=== PATIENT | female | born 1970 | race American Indian/Alaskan Native ===

== ENCOUNTER 2017-12-31 06:55 | Day surgery (SDC) | payer OTHER ==
[~2017-12-31 06:55] MED LIST: Midazolam 1 MG/ML 2 ML SDV ONE; fentaNYL 100 MCG/2 ML SDV ONE
[2017-12-31] MEDS ORDERED: Midazolam 1 MG/ML 2 ML SDV IV ONE ×4 (06:56→07:39)
[2017-12-31] MEDS ORDERED: Midazolam 1 MG/ML 2 ML SDV ONE (07:37)
[2017-12-31] MEDS ORDERED: Sodium Chloride 0.9% 10 ML Syringe FLUSH PRN (08:00)
[2017-12-31] MEDS ORDERED: Dextrose 5%-0.45% NaCl 1,000 ML IV SCH (08:00)
--- NOTE | 2017-12-31 08:47 | OR ---
DATE: 12/31/2017 PROCEDURES: Esophagogastroduodenoscopy and multiple pinch biopsies. INSTRUMENT USED: GIF-H180 Olympus video panendoscope. PREMEDICATIONS: Versed 3 mg intravenous. 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 INDICATION: The patient with longstanding heartburn, dyspepsia, and upper abdominal pain, also found to be iron-deficient. DESCRIPTION OF PROCEDURE: Esophagogastroduodenoscopy is performed for detection of any active erosive lesions. Garcias esophagus and/or malignancy also under consideration. H. pylori status to be determined. Small bowel biopsies to be obtained for celiac disease if indicated, endoscopic hemostasis therapy if needed. The scope was passed with ease. Adequate visualization of the esophagus was made from proximal to distal areas. No upper esophageal lesions identified. No distal esophageal stricture. No uphill or downhill esophageal varices. No Antionette-Quintero tear. Grade A erosive changes were noted by [place] criteria. No esophageal polyp or tumor mass identified. Z-line was seen at around 40 cm distal to the oral verge. No proximal gastric varices noted. Gastric fundus examination by retroflexion showed no polypoid lesions. No gastric ulcer, malignant mass, or vascular ectasia identified. Duodenal bulb showed no ulcer. Visualized second part of the duodenum was unremarkable. Multiple pinch biopsies, four in number, were taken from different areas of the second part of the duodenum; and tissues were obtained from the duodenal bulb at 9 o'clock and 12 o'clock positions and sent for any histopathologic evidence of celiac disease. Multiple pinch biopsies were obtained from the gastric antrum and proximal body and sent for PyloriTek test for H. pylori and histopathology. No bleeding was noted from any of the visualized areas at the completion of examination. Photographs were taken of the duodenal bulb, gastric antrum, fundus, and distal esophagus. IMPRESSION: Grade A gastroesophageal reflux disease. The patient tolerated the procedure well. [facility] /[id number]
--- NOTE | 2017-12-31 08:59 | LETTER ---
12/31/2017 Namita Worrell MD [facility] [address] [place] [address] RE: LADAN LEROY : [address] Worrell: Ms. Ladan Leroy had esophagogastroduodenoscopy done this morning and she tolerated the procedure well. I herewith send a copy of the endoscopy note and photographs for your review. Thank you. Sincerely, [facility] /[id number]
== END 2017-12-31 09:48 | disposition home or self-care (01) ==
LOC: DL.ENDO 06:55
PROVIDERS: ATTEND Internal Medicine Gastroenterology
DX: K21.9 Gastro-esophageal reflux disease without esophagitis (principal); E66.9 Obesity, unspecified; E11.9 Type 2 diabetes mellitus without complications; E55.9 Vitamin D deficiency, unspecified; Z79.84 Long term (current) use of oral hypoglycemic drugs; Z79.899 Other long term (current) drug therapy
CPT/HCPCS: 43239; 87077; J2250; J7042

== ENCOUNTER 2018-01-03 06:11 | Day surgery (SDC) | payer OTHER ==
[2018-01-03] MEDS ORDERED: fentaNYL 100 MCG/2 ML SDV IV ONE ×2 (06:12→07:32)
[2018-01-03] MEDS ORDERED: Midazolam 1 MG/ML 2 ML SDV IV ONE ×7 (06:12→07:43)
[2018-01-03] MEDS ORDERED: Midazolam 1 MG/ML 2 ML SDV ONE (06:16)
[2018-01-03] MEDS ORDERED: fentaNYL 100 MCG/2 ML SDV ONE (06:16)
[2018-01-03] MEDS ORDERED: Dextrose 5%-0.45% NaCl 1,000 ML IV SCH (06:50)
--- NOTE | 2018-01-03 08:51 | OR ---
DATE: 01/03/2018 PROCEDURES: Total colonoscopy, multiple cold snare polypectomies, and multiple pinch biopsies. INSTRUMENT USED: CF-H180 AL Olympus video colonoscope. PREMEDICATIONS: Fentanyl 50 mcg intravenous, Versed 4 mg intravenous. The procedure was done under pulse oximetry, BP recording, and cardiac monitoring. INDICATION: The patient with chronic diarrhea unexplained and not responsive to medical measures. Colonoscopic examination is done for detection of any polypoid lesions and removal. Biopsies to be obtained for microscopic colitis, endoscopic hemostasis therapy if needed. DESCRIPTION OF PROCEDURE: Initial rectal exam was unremarkable. Rigid anoscopy was normal. The colonoscope was passed with ease. Multiple 3-mm sized benign-appearing polyps were noted in the rectum, five in number. Photograph was taken. Cold snare polypectomies were done. The tissues were retrieved and sent for histopathology. Numerous scattered diverticula were noted more so in the distal left colon along with deformity. The scope was passed with ease up to the ileocecal area. Photographs were taken of the normal-appearing cecum identified by landmarks of appendiceal orifice and double-bulged ileocecal folds. No bleeding was noted from any of the visualized areas at the commencement of the examination. No stricture. No vascular ectasia. No large isolated ulcerations seen. No evidence of diffuse inflammatory bowel disease in the form of friability, contact bleeding, or ulcerations. Probing the proximal sides of folds and flexures using adequate distention and clearing up the stool material, withdrawal of the scope was made. In the mid transverse colon and distal descending colon, diminutive 3-mm sized benign-appearing polyps were noted. Cold snare polypectomies were done. The tissues were retrieved and sent for histopathology. Multiple pinch biopsies were taken from the normal-appearing mucosa of the mid transverse colon, distal descending colon, and rectosigmoid, and sent for any histopathologic evidence of microscopic colitis. No bleeding was noted from any of the visualized areas at the completion of examination. IMPRESSION: 1. Diverticulosis. 2. Multiple colonic polyps. The patient tolerated the procedure well. [facility] /[id number]
--- NOTE | 2018-01-03 09:27 | LETTER ---
01/03/2018 Namita Worrell MD [facility] [address] [place] [address] RE: LADAN LEROY : [address] Worrell: Ms. Ladan Leroy had a colonoscopic examination done this morning and she tolerated the procedure well. I herewith send a copy of the endoscopy note and photographs for your review. Thank you. Sincerely, [facility] /[id number]
== END 2018-01-03 10:06 | disposition home or self-care (01) ==
LOC: DL.ENDO 06:11
PROVIDERS: ATTEND Internal Medicine Gastroenterology
DX: D12.3 Benign neoplasm of transverse colon (principal); D12.4 Benign neoplasm of descending colon; K62.1 Rectal polyp; K57.30 Diverticulosis of large intestine without perforation or abscess without bleeding; K52.9 Noninfective gastroenteritis and colitis, unspecified; E11.9 Type 2 diabetes mellitus without complications; E55.9 Vitamin D deficiency, unspecified; E61.1 Iron deficiency; E66.9 Obesity, unspecified; Z68.35 Body mass index [BMI] 35.0-35.9, adult; Z79.84 Long term (current) use of oral hypoglycemic drugs; Z79.899 Other long term (current) drug therapy
CPT/HCPCS: 45380; 45385; J2250; J3010; J7042

== ENCOUNTER 2019-05-20 18:35 | Emergency (ER) | payer OTHER | END 2019-05-20 19:07 | disposition left against medical advice (07) | LOC: DL.ED 18:35 | DX: Z53.21 Procedure and treatment not carried out due to patient leaving prior to being seen by health care provider (principal) | CPT/HCPCS: 99281 ==